=== PATIENT | female | born 1965 | race Caucasian/White ===

== ENCOUNTER 2017-01-09 21:18 | Emergency (ER) | payer BC ==
[2017-01-09 22:07] LABS: URINE BILIRUBIN NEGATIVE (NEGATIVE); URINE BLOOD LARGE (NEGATIVE); URINE COLOR YELLOW; URINE GLUCOSE (UA) NEGATIVE (NEGATIVE); URINE KETONE NEGATIVE (NEGATIVE); URINE LEUKOCYTE ESTERASE TRACE (NEGATIVE); URINE NITRITE NEGATIVE (NEGATIVE); URINE PROTEIN NEGATIVE (NEGATIVE); URINE UROBILINOGEN 0.2 E.U./dL (0.20 - 1.00)
[2017-01-09 22:09] LABS: URINE APPEARANCE SL CLOUDY
[2017-01-09 22:14] LABS: URINE BACTERIA NONE SEEN; URINE EPITHELIAL CELLS 0 - 2 (FEW); URINE WBC 0 - 2 (0-2/hpf)
[2017-01-09] MEDS ORDERED: 0.9 % SODIUM CHLORIDE 1,000 ML BAG IV ONE (22:15)
[2017-01-09] MEDS ORDERED: KETOROLAC 30 MG/ML VIAL IVP ONE (22:17)
[2017-01-09 22:25] LABS: BASO % 0.2 % (0-6); EOS % 4.9 % (0-6); GRAN % 55.6 % (47-80); HEMATOCRIT 43.6 % (35.0-47.0); HEMOGLOBIN 13.9 gm/dl (11.6-16.0); LYMPH % 30.4 % (16-45); MEAN CELL VOLUME 92.8 fl (81-97); MEAN CORPUSCULAR HEMOGLOBIN 29.6 pg (27-33); MEAN CORPUSCULAR HGB CONC 31.9 g/dl (32-36); MEAN PLATELET VOLUME 10.6 fl (7.4-10.4); MONO % 8.9 % (0-9); PLATELET COUNT 293 K/uL (130-400); RED CELL DISTRIBUTION WIDTH 13.2 % (11.5-14.5); WHITE BLOOD COUNT W/O DIFF 8.6 K/uL (4.2-12.2)
[2017-01-09 22:35] LABS: CREATININE 1.1 mg/dL (0.52-1.04)
--- NOTE | 2017-01-09 23:45 | Emergency Department Record ---
History of Present Illness - General Chief complaint: Flank Pain Stated complaint: FLANK PAIN Time Seen by Provider: 01/09/17 22:15 Source: Patient Mode of Arrival: Ambulatory Limitations: No limitations - History of Present Illness Initial comments: pt c/o r flank pain that feels like previous kidney stones. Onset/Timin -: Hour(s) Location: RLQ Radiation: R flank Severity scale (1-10): 8 Quality: Other Consistency: Constant Improves with: None Worsens with: None Patient : No Associated Symptoms: Denies other symptoms - Related Data Home Medications Medication Instructions Recorded Confirmed Last Taken Ascorbic Acid [Vitamin C] 500 mg PO DAILY 02/17/15 01/09/17 01/09/17 Calcium Carbonate/Vitamin D3 1 each PO DAILY 02/17/15 01/09/17 01/09/17 [Calcium 1,000 + D3 Caplet] Levothyroxine Sodium [Synthroid] 125 mcg PO QHS 02/17/15 01/09/17 01/09/17 Multivitamin [Multi-Vitamin Daily] 1 each PO DAILY 02/17/15 01/09/17 01/09/17 Bupropion HCl [Wellbutrin Xl] 300 mg PO DAILY 04/02/16 01/09/17 01/09/17 Magnesium [Magnesium] 250 mg PO DAILY 04/02/16 01/09/17 01/09/17 Omeprazole/Sodium Bicarbonate 1 each PO ASDIR 04/02/16 01/09/17 01/09/17 [Zegerid Otc 20-1,100 mg Cap] Previous Rx's Medication Instructions Recorded Hydrocodone/Acetaminophen [[place] 1 tab PO Q6H PRN #14 tab 01/09/17 5mg/325mg] Allergies Allergy/AdvReac Type Severity Reaction Status Date / Time sulfamethoxazole Allergy Mild HIVES Verified 02/17/15 10:07 [From Bactrim] trimethoprim [From Bactrim] Allergy Mild HIVES Verified 02/17/15 10:07 Travel Screening - Travel/Exposure Within Last 30 Days Have you traveled within the last 30 days?: No - Travel Symptoms Symptom Screening: None Review of Systems Reviewed: No additional complaints except as noted below Constitutional: Reports: As per HPI. Denies: Chills, Fever, Malaise, Night sweats, Weakness, Weight change Eyes: Reports: As per HPI. Denies: Eye discharge, Eye pain, Photophobia, Vision change ENT: Reports: As per HPI. Denies: Congestion, Dental pain, Ear pain, Epistaxis , Hearing loss, Throat pain Respiratory: Reports: As per HPI. Denies: Cough, Dyspnea, Hemoptysis, Stridor, Wheezes Cardiovascular: Reports: As per HPI. Denies: Arrhythmia, Chest pain, Dyspnea on exertion, Edema, Murmurs, Orthopnea, Palpitations, Paroxysmal nocturnal dyspnea, Rheumatic Fever, Syncope Endocrine: Reports: As per HPI. Denies: Fatigue, Heat or cold intolerance, Polydipsia, Polyuria Gastrointestinal: Reports: As per HPI. Denies: Abdominal pain, Constipation, Diarrhea, Hematemesis, Hematochezia, Melena, Nausea, Vomiting Genitourinary: Reports: As per HPI. Denies: Abnormal menses, Discharge, Dyspareunia, Dysuria, Frequency, Hematuria, Incontinence, Retention, Urgency Musculoskeletal: Reports: As per HPI. Denies: Arthralgia, Back pain, Gout, Joint swelling, Myalgia, Neck pain Skin: Reports: As per HPI. Denies: Bruising, Change in color, Change in hair/ nails, Lesions, Pruritus, Rash Neurological: Reports: As per HPI. Denies: Abnormal gait, Confusion, Headache, Numbness, Paresthesias, Seizure, Tingling, Tremors, Vertigo, Weakness Psychiatric: Reports: As per HPI. Denies: Anxiety, Auditory hallucinations, Depression, Homicidal thoughts, Suicidal thoughts, Visual hallucinations Hematological/Lymphatic: Reports: As per HPI. Denies: Anemia, Blood Clots, Easy bleeding, Easy bruising, Swollen glands Past Medical History - SOCIAL HISTORY Smoking Status: Former smoker - RESPIRATORY Hx Respiratory Disorders: Yes Hx Sleep Apnea: Yes Hx of CPAP: No - CARDIOVASCULAR Hx Cardio Disorders: No - NEURO Hx Neuro Disorders: No - GI Hx GI Disorders: Yes Hx Reflux: Yes - Hx Genitourinary Disorders: Yes Hx Kidney Stones: Yes (last >2year ago; Kidney stent in 06/2016) Comment:: medullary sponge kidney - ENDOCRINE Hx Endocrine Disorders: Yes Hx Thyroid Disease: Yes - MUSCULOSKELETAL Hx Musculoskeletal Disorders: Yes Hx Arthritis: Yes - PSYCH Hx Psych Problems: Yes Hx Anxiety: Yes Hx Depression: Yes - HEMATOLOGY/ONCOLOGY Hx Hematology/Oncology Disorders: Yes Hx Cancer: Yes Hx Chemotherapy: No Hx Radiation Therapy: No Family Medical History Any Significant Family History?: Yes Hx Cancer: Father, Mother *Cancer Comment: pancreatic, appendix, leukemia Hx Heart Disease: Grandparents *Heart Comment: CHF Physical Exam - General General Appearance: Alert, Oriented x3, Cooperative, Mild distress - Head Head exam: Normal inspection - Eye Eye exam: Normal appearance, PERRL, EOMI Pupils: Normal accommodation - ENT ENT exam: Normal exam, Mucous membranes moist, Normal external ear exam, Normal orophraynx Ear exam: Normal external inspection. negative: External canal tenderness Nasal Exam: Normal inspection. negative: Discharge, Sinus tenderness Mouth exam: Normal external inspection, Tongue normal Teeth exam: Normal inspection. negative: Dental caries Throat exam: Normal inspection. negative: Tonsillar erythema, Tonsillar exudate - Neck Neck exam: Normal inspection, Full ROM. negative: Tenderness - Respiratory Respiratory exam: Normal lung sounds bilaterally. negative: Respiratory distress - Cardiovascular Cardiovascular Exam: Regular rate, Normal rhythm, Normal heart sounds - GI/Abdominal GI/Abdominal exam: Soft, Normal bowel sounds, Tenderness - Rectal Rectal exam: Deferred - exam: Deferred - Extremities Extremities exam: Normal inspection, Full ROM, Normal capillary refill. negative: Tenderness - Back Back exam: Reports: Normal inspection, CVA tenderness (R), Full ROM. Denies: Muscle spasm, Rash noted, Tenderness - Neurological Neurological exam: Alert, CN II-XII intact, Normal gait, Oriented X3 - Psychiatric Psychiatric exam: Normal affect, Normal mood - Skin Skin exam: Dry, Intact, Normal color, Warm Course Vital Signs 01/09/17 21:59 Temperature 98 F Pulse Rate [ 101 H Pulse Ox Probe] Respiratory 20 Rate Blood Pressure 165/96 [Left Arm] Pulse Ox 99 - Reevaluation(s) Reevaluation #1: 01/09/17 23:42 pt feels much better. Medical Decision Making - Lab Data Result diagrams: 01/09/17 22:18 01/09/17 22:17 Lab Results 01/09/17 01/09/17 01/09/17 Range/Units 22:08 22:15 22:17 WBC (4.2-12.2) K/uL RBC (3.80-5.40) M/uL Hgb (11.6-16.0) gm/dl Hct (35.0-47.0) % MCV (81-97) fl MCH (27-33) pg MCHC (32-36) g/dl RDW (11.5-14.5) % Plt Count (130-400) K/uL MPV (7.4-10.4) fl Gran % (47-80) % Lymphocytes % (16-45) % Monocytes % (0-9) % Eosinophils % (0-6) % Basophils % (0-6) % Sodium 141 (136-145) mmol/L Potassium 3.7 (3.5-5.1) mmol/L Chloride 101 (98-107) mmol/L Carbon Dioxide 28.0 (22-30) mmol/L Anion Gap 12.0 (7-16) BUN 17 (7-17) mg/dL Creatinine 1.1 H (0.52-1.04) mg/dL Estimated GFR 55 ml/min Random Glucose 103 (70-110) mg/dL Calcium 9.5 (8.5-10.1) mg/dL Urine Color Yellow Cancelled Urine Appearance Sl cloudy Cancelled Urine pH 7.5 Cancelled (5.0-8.0) Ur Specific [place] 1.010 Cancelled (1.002-1.030) Urine Protein Negative Cancelled (NEGATIVE) Urine Glucose (UA) Negative Cancelled (NEGATIVE) Urine Clinitest Cancelled Urine Ketones Negative Cancelled (NEGATIVE) Urine Blood Large H Cancelled (NEGATIVE) Urine Nitrite Negative Cancelled (NEGATIVE) Urine Bilirubin Negative Cancelled (NEGATIVE) Urine Ictotest Cancelled Prot Sulfosalicylic Acd Cancelled Urine Urobilinogen 0.2 Cancelled (0.20 - 1.00) E.U./dL Ur Leukocyte Esterase Trace H Cancelled (NEGATIVE) Urine RBC 7 - 10 (NONE SEEN) Urine WBC 0 - 2 (0-2/hpf) Ur Epithelial Cells 0 - 2 (FEW) Urine Bacteria None seen 01/09/17 Range/Units 22:18 WBC 8.6 (4.2-12.2) K/uL RBC 4.70 (3.80-5.40) M/uL Hgb 13.9 (11.6-16.0) gm/dl Hct 43.6 (35.0-47.0) % MCV 92.8 (81-97) fl MCH 29.6 (27-33) pg MCHC 31.9 L (32-36) g/dl RDW 13.2 (11.5-14.5) % Plt Count 293 (130-400) K/uL MPV 10.6 H (7.4-10.4) fl Gran % 55.6 (47-80) % Lymphocytes % 30.4 (16-45) % Monocytes % 8.9 (0-9) % Eosinophils % 4.9 (0-6) % Basophils % 0.2 (0-6) % Sodium (136-145) mmol/L Potassium (3.5-5.1) mmol/L Chloride (98-107) mmol/L Carbon Dioxide (22-30) mmol/L Anion Gap (7-16) BUN (7-17) mg/dL Creatinine (0.52-1.04) mg/dL Estimated GFR ml/min Random Glucose (70-110) mg/dL Calcium (8.5-10.1) mg/dL Urine Color Urine Appearance Urine pH (5.0-8.0) Ur Specific [place] (1.002-1.030) Urine Protein (NEGATIVE) Urine Glucose (UA) (NEGATIVE) Urine Clinitest Urine Ketones (NEGATIVE) Urine Blood (NEGATIVE) Urine Nitrite (NEGATIVE) Urine Bilirubin (NEGATIVE) Urine Ictotest Prot Sulfosalicylic Acd Urine Urobilinogen (0.20 - 1.00) E.U./dL Ur Leukocyte Esterase (NEGATIVE) Urine RBC (NONE SEEN) Urine WBC (0-2/hpf) Ur Epithelial Cells (FEW) Urine Bacteria Disposition Disposition: Discharge Clinical Impression: Renal lithiasis Hydronephrosis Qualifiers: Hydronephrosis type: with ureteropelvic junction obstruction 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 return sooner if worse. push fluids. Prescriptions: Hydrocodone/Acetaminophen [Florala 5mg/325mg] 1 tab PO Q6H PRN #14 tab PRN Reason: Pain - General Forms: Patient Portal Access
[2017-01-09] MEDS ORDERED: HYDROCODONE/APAP 5/325MG TABLET PO ONE (23:49)
--- NOTE | 2017-01-10 10:46 | CT SCAN REPORT ---
EXAM: CT SCAN OF THE ABDOMEN AND PELVIS WITHOUT CONTRAST HISTORY: RIGHT SIDED FLANK PAIN AND ABDOMINAL PRESSURE. SYMPTOMS BEGAN AT 5: 30 P.M. TONIGHT. HISTORY OF MULTIPLE KIDNEY STONES IN THE PAST. TECHNIQUE: Standard CT imaging of the abdomen and pelvis was performed in the axial plane without contrast. Additional coronal and sagittal reformatted images were also performed. Comparison: 04/02/16. FINDINGS: There is mild atelectasis or scarring at both lung bases. The lung bases are otherwise clear. There are scattered tiny cysts within the liver which appears stable. Multiple calcified gallstones are are present. There is no gallbladder wall thickening or pericholecystic inflammation. There is no biliary ductal dilatation. The pancreas, spleen, and adrenal glands are normal. There are multiple nonobstructing stones within both kidneys. The largest within the right kidney measures 5 mm in maximal dimension. The largest within the left kidney measures 7 mm in maximal dimension. There is mild to moderate right hydronephrosis secondary to a 3 mm calculus within the right ureterovesical junction. There is no left hydronephrosis. The aorta is normal in caliber. There is no retroperitoneal lymphadenopathy. A tiny hiatal hernia is present. The stomach and epigastrium are otherwise normal. The large and small bowel loops appear within normal limits. There are focal inflammatory changes. There is no pneumoperitoneum or ascites. The uterus and adnexa appear normal. The urinary bladder is otherwise unremarkable. Degenerative changes are present within the spine. There are no acute osseous abnormalities. IMPRESSION: 1. MILD TO MODERATE RIGHT HYDRONEPHROSIS SECONDARY TO A 3 MM CALCULUS WITHIN THE RIGHT URETEROVESICAL JUNCTION. 2. MULTIPLE BILATERAL NONOBSTRUCTING INTRARENAL CALCULI. 3. CHOLELITHIASIS WITH NO EVIDENCE FOR ACUTE CHOLECYSTITIS. 4. STABLE HEPATIC CYSTS. 5. TINY HIATAL HERNIA. JOB [facility]BER: [id number] [facility]
== END 2017-01-10 00:09 | disposition home or self-care (01) ==
LOC: ER 21:18
DX: N13.2 Hydronephrosis with renal and ureteral calculous obstruction (principal); Z87.442 Personal history of urinary calculi; Q61.5 Medullary cystic kidney
CPT/HCPCS: 99284 ×2; 96374; 96361; 85025; 80048; 81001; 74176; J1885; J7030

== ENCOUNTER 2017-10-27 18:08 | Emergency (ER) | payer BC ==
[2017-10-27] MEDS ORDERED: ONDANSETRON HCL IV 4 MG/2 ML VIAL IV ONE (18:39)
[2017-10-27] MEDS ORDERED: HYDROMORPHONE HCL 1 MG/ML SYRINGE IVP ONE (18:39)
[2017-10-27] MEDS ORDERED: 0.9 % SODIUM CHLORIDE 1,000 ML BAG IV ONE (18:39)
--- NOTE | 2017-10-27 18:42 | Emergency Department Record ---
History of Present Illness - General Chief complaint: Flank Pain Stated complaint: FLANK PAIN LOWER L SIDE Time Seen by Provider: 10/27/17 18:31 Source: Patient Mode of Arrival: Ambulatory Limitations: No limitations - History of Present Illness Initial comments: The patient is here due to L lower Quad AP intermittently for a week. She denies any nausea, vomiting, diarrhea, fever or dysuria. The patient has a hx of many kidney stones and this feels like one of them. She has seen Dr. Savage in the past and has needed ureter stents in the past. MD Complaint: Other Onset/Timin -: Week(s) Location: LLQ Radiation: Non-radiating Severity: Moderate Severity scale (1-10): 6 Quality: Aching Consistency: Constant Improves with: None Worsens with: None Patient : No Associated Symptoms: Abdominal pain - Related Data Previous Rx's Medication Instructions Recorded Hydrocodone/Acetaminophen [Wall 1 - 2 each PO .EVERY 4-6 HRS PRN 10/27/17 5-325 Tablet] #20 tablet Allergies Allergy/AdvReac Type Severity Reaction Status Date / Time tamsulosin [From Flomax] Allergy Intermediate HIVES Verified 10/27/17 18:26 sulfamethoxazole Allergy Mild HIVES Verified 10/27/17 18:23 [From Bactrim] trimethoprim [From Bactrim] Allergy Mild HIVES Verified 10/27/17 18:23 Travel Screening - Travel/Exposure Within Last 30 Days Have you traveled within the last 30 days?: No Review of Systems Constitutional: Denies: Chills, Fever Eyes: Denies: Eye discharge ENT: Denies: Congestion Respiratory: Denies: Cough, Dyspnea Past Medical History - SOCIAL HISTORY Smoking Status: Former smoker Alcohol Use: Occasional Drug Use: None - RESPIRATORY Hx Respiratory Disorders: Yes Hx Sleep Apnea: Yes Hx of CPAP: No - CARDIOVASCULAR Hx Cardio Disorders: No - NEURO Hx Neuro Disorders: No - GI Hx GI Disorders: Yes Hx Reflux: Yes - Hx Genitourinary Disorders: Yes Hx Kidney Stones: Yes Comment:: medullary sponge kidney - ENDOCRINE Hx Endocrine Disorders: Yes Hx Thyroid Disease: Yes - MUSCULOSKELETAL Hx Musculoskeletal Disorders: Yes Hx Arthritis: Yes - PSYCH Hx Psych Problems: Yes Hx Anxiety: Yes Hx Depression: Yes - HEMATOLOGY/ONCOLOGY Hx Hematology/Oncology Disorders: Yes Hx Cancer: Yes Hx Chemotherapy: No Hx Radiation Therapy: No Family Medical History Any Significant Family History?: Yes Hx Cancer: Father, Mother *Cancer Comment: pancreatic, appendix, leukemia Hx Heart Disease: Grandparents *Heart Comment: CHF Physical Exam - General General Appearance: Alert, Oriented x3, Cooperative, No acute distress - Head Head exam: Atraumatic, Normocephalic, Normal inspection - Eye Eye exam: Normal appearance, PERRL - Neck Neck exam: Normal inspection, Full ROM. negative: Tenderness - Respiratory Respiratory exam: Normal lung sounds bilaterally. negative: Respiratory distress - Cardiovascular Cardiovascular Exam: Regular rate, Normal rhythm, Normal heart sounds - GI/Abdominal GI/Abdominal exam: Soft, Normal bowel sounds, Tenderness (There is mild LLQ tenderness.). negative: Guarding, Pulsatile mass, Rebound, Rigid - Extremities Extremities exam: Normal inspection, Full ROM, Normal capillary refill. negative: Tenderness - Neurological Neurological exam: Alert. negative: Motor sensory deficit Course Vital Signs 10/27/17 18:20 Temperature 97.8 F Pulse Rate 89 Respiratory 20 Rate Blood Pressure 118/94 Pulse Ox 98 - Reevaluation(s) Reevaluation #1: The patient is doing very well at this time. Her pain is controlled and she does feel comfortable going home. I did explain the CT results to her and the need for F/U. She understands the need to return for any worsening symptoms, fever, or vomiting. 10/27/17 19:57 Medical Decision Making - Data Complexity MDM Data: Labs Ordered and/or Reviewed, X-Ray Ordered and/or Reviewed - Lab Data Result diagrams: 10/27/17 18:45 10/27/17 19:04 - Radiology Data Radiology results: Report reviewed (CT: 5.5 mm stone L UPJ partially obstructing.) Disposition Disposition: Discharge Clinical Impression: Renal lithiasis Disposition: Home, Self-Care Condition: (2) Stable Instructions: Renal Colic (ED) Additional Instructions: Please drink plenty of fluids and take Advil or Wall for pain. Please call Dr. Savage Monday for an appointment. Return to the ER for any increased pain, fever , or vomiting. Prescriptions: Hydrocodone/Acetaminophen [Wall 5-325 Tablet] 1 - 2 each PO .EVERY 4-6 HRS PRN #20 tablet PRN Reason: Pain Forms: Patient Portal Access Time of Disposition: 19:55 Quality - Quality Measures Quality Measures: N/A - Blood Pressure Screening View Details: Yes Does Patient Have Any of the Following: No Blood Pressure Classification: Hypertensive Reading Systolic Measurement: 118 Diastolic Measurement: 94 Screening for High Blood Pressure: < Pre-Hypertensive BP, F/U Documented > [ [id number]] Pre-Hypertensive Follow-up Interventions: Referral to alternative/primary care provider.
[2017-10-27 19:16] LABS: BASO % 0.1 % (0-6); GRAN % 57.4 % (47-80); HEMATOCRIT 42.9 % (35.0-47.0); HEMOGLOBIN 14.2 gm/dl (11.6-16.0); LYMPH % 30.6 % (16-45); MEAN CELL VOLUME 93.5 fl (81-97); MEAN CORPUSCULAR HEMOGLOBIN 30.9 pg (27-33); MEAN CORPUSCULAR HGB CONC 33.1 g/dl (32-36); MEAN PLATELET VOLUME 10.4 fl (7.4-10.4); MONO % 7.9 % (0-9); PLATELET COUNT 278 K/uL (130-400); RED BLOOD COUNT 4.59 M/uL (3.80-5.40); RED CELL DISTRIBUTION WIDTH 12.9 % (11.5-14.5); WHITE BLOOD COUNT W/O DIFF 7.2 K/uL (4.2-12.2)
[2017-10-27 19:17] LABS: URINE APPEARANCE SL CLOUDY; URINE BILIRUBIN NEGATIVE (NEGATIVE); URINE BLOOD TRACE-I (NEGATIVE); URINE COLOR YELLOW; URINE GLUCOSE (UA) NEGATIVE (NEGATIVE); URINE KETONE NEGATIVE (NEGATIVE); URINE LEUKOCYTE ESTERASE TRACE (NEGATIVE); URINE NITRITE NEGATIVE (NEGATIVE); URINE PROTEIN NEGATIVE (NEGATIVE); URINE UROBILINOGEN 0.2 E.U./dL (0.20 - 1.00)
[2017-10-27 19:25] LABS: BLOOD UREA NITROGEN 23 mg/dL (6-20); CREATININE 0.9 mg/dL (0.5-0.9); EST GLOMERULAR FILTRATION RATE > 60 mL/min
[2017-10-27 19:28] LABS: GLUCOSE,RANDOM 100 mg/dL (74-109)
[2017-10-27 19:29] LABS: URINE CALCIUM OXALATE CRYSTALS FEW /hpf; URINE RBC 0 - 2 (NONE SEEN); URINE WBC 0 - 2 (0-2/hpf)
--- NOTE | 2017-10-28 10:45 | CT SCAN REPORT ---
DATE: 10/27/2017. EXAM: CT SCAN OF THE ABDOMEN AND PELVIS. HISTORY: The patient has left lower quadrant pain. TECHNIQUE: Serial axial CT scan of the abdomen and pelvis was performed at 3.75 mm intervals from the dome of the diaphragm down to the pubic symphysis without the use of intravenous or oral contrast. COMPARISON: CT scan of the abdomen and pelvis dated 11/23/2007 is provided. FINDINGS: The lung windows of the lung bases demonstrate linear scarring of the bilateral lung bases which appear similar to the prior CT scan. The visualized heart size and contour is within normal limits. A small hiatal hernia is noted. The bilateral hepatic lobe cysts appear similar to the prior CT scan. Some of the cysts that can be identified on the previous CT scan have increased in size with respect to the prior examination. The size and contour of the liver is within normal limits. The spleen and pancreas are unremarkable. The left adrenal gland is unchanged. Within the lateral limb of the right adrenal gland, there is a 1.6 cm nodule which has increased in size with respect to the prior examination. This finding likely represents an adrenal adenoma. If there is further clinical concern then an MRI of the adrenal glands can be obtained for further evaluation. Multiple gallstones are identified within the gallbladder without CT evidence of cholecystitis. These gallstones have increased in size with respect to the prior examination. Multiple bilateral renal calculi are identified. Within the left ureteropelvic junction there is a partially obstructing 5.5 mm calculus. Subtle periureteral fat stranding is identified at this level. There are findings suggestive of mild left-sided hydronephrosis. Multiple nonobstructive renal calculi are noted bilaterally as well. The largest nonobstructing renal calculus within the right kidney is at the superior pole and measures approximately 6.0 mm. The largest nonobstructing calculus within the left kidney is at its inferior pole and measures approximately 6.0 mm. The contour and caliber of the abdominal aorta is within normal limits. There is no CT evidence of intraperitoneal, pelvic, or inguinal lymphadenopathy. The bowel gas pattern is nonspecific and nonobstructive. There is no CT evidence of free intraperitoneal fluid or free intraperitoneal air. The urinary bladder is unremarkable. The uterus is unremarkable. IMPRESSION: 1. A PARTIALLY OBSTRUCTING 5.5 MM CALCULUS IS NOTED WITHIN THE LEFT URETEROPELVIC JUNCTION DISCUSSED ABOVE. 2. MULTIPLE NONOBSTRUCTIVE BILATERAL RENAL CALCULI. 3. MULTIPLE SMALL HEPATIC CYSTS, SOME OF WHICH HAVE INCREASED SLIGHTLY IN SIZE WITH RESPECT TO THE PRIOR EXAMINATION. 4. MULTIPLE GALLSTONES ARE IDENTIFIED WITHOUT CT EVIDENCE OF CHOLECYSTITIS. JOB NUMBER: [id number] [facility]
== END 2017-10-27 20:11 | disposition home or self-care (01) ==
LOC: ER 18:08
DX: N20.2 Calculus of kidney with calculus of ureter (principal); M54.5 Low back pain; Z87.442 Personal history of urinary calculi
CPT/HCPCS: 99284 ×2; 96374; 96375; 96361; 85025; 80048; 81001; 74018; 74176; J2405; J1170; J7030

== ENCOUNTER 2019-03-16 16:19 | Emergency (ER) | payer BC ==
[2019-03-16] MEDS ORDERED: ONDANSETRON HCL IV 4 MG/2 ML VIAL IV ONE (16:41)
[2019-03-16] MEDS ORDERED: KETOROLAC 30 MG/ML VIAL IVP ONE (16:41)
[2019-03-16] MEDS ORDERED: 0.9 % SODIUM CHLORIDE 1,000 ML BAG IV ONE (16:41)
[2019-03-16 16:57] LABS: URINE APPEARANCE CLEAR; URINE BILIRUBIN NEGATIVE (NEGATIVE); URINE BLOOD NEGATIVE (NEGATIVE); URINE COLOR YELLOW; URINE GLUCOSE (UA) NEGATIVE (NEGATIVE); URINE KETONE NEGATIVE (NEGATIVE); URINE NITRITE NEGATIVE (NEGATIVE); URINE PROTEIN NEGATIVE (NEGATIVE); URINE UROBILINOGEN 0.2 E.U./dL (0.20 - 1.00)
[2019-03-16 16:58] LABS: ABSOLUTE NEUTROPHIL COUNT 4.86; BASO % 0.2 % (0-6); EOS % 3.8 % (0-6); GRAN % 57.9 % (47-80); HEMATOCRIT 47.8 % (35.0-47.0); HEMOGLOBIN 15.5 gm/dl (11.6-16.0); LYMPH % 29.1 % (16-45); MEAN CELL VOLUME 93.9 fl (81-97); MEAN CORPUSCULAR HEMOGLOBIN 30.5 pg (27-33); MEAN CORPUSCULAR HGB CONC 32.4 g/dl (32-36); MEAN PLATELET VOLUME 10.8 fl (7.4-10.4); PLATELET COUNT 335 K/uL (130-400); RED BLOOD COUNT 5.09 M/uL (3.80-5.40); RED CELL DISTRIBUTION WIDTH 13.1 % (11.5-14.5); WHITE BLOOD COUNT W/O DIFF 8.4 K/uL (4.2-12.2)
[2019-03-16] MEDS ORDERED: HYDROMORPHONE HCL 2 MG/ML VIAL IVP ONE (17:00)
[2019-03-16 17:07] LABS: URINE EPITHELIAL CELLS 0 - 2 (FEW); URINE LEUKOCYTE ESTERASE TRACE (NEGATIVE); URINE RBC 0 - 2 (NONE SEEN); URINE WBC 0 - 2 (0-2/hpf)
[2019-03-16 17:12] LABS: BLOOD UREA NITROGEN 14 mg/dL (6-20); EST GLOMERULAR FILTRATION RATE > 60 mL/min
[2019-03-16 17:15] LABS: GLUCOSE,RANDOM 114 mg/dL (74-109)
--- NOTE | 2019-03-16 17:15 | Emergency Department Record ---
History of Present Illness - General Chief complaint: Flank Pain Stated complaint: R FLANK PAIN Time Seen by Provider: 03/16/19 16:34 Source: Patient Mode of Arrival: Ambulatory Limitations: No limitations - History of Present Illness Initial comments: pt came in c/o r flank pain that feels like her previous kidney stones. she has had many and has had lithotripsy before Onset/Timin -: Hour(s) Radiation: R flank Severity scale (1-10): 8 Quality: Aching, Sharp Consistency: Constant Improves with: None Worsens with: None Patient : No Associated Symptoms: Denies other symptoms - Related Data Sexually active: No Allergies Allergy/AdvReac Type Severity Reaction Status Date / Time tamsulosin [From Flomax] Allergy Intermediate HIVES Unverified 08/17/18 14:21 sulfamethoxazole Allergy Mild HIVES Verified 10/27/17 18:23 [From Bactrim] trimethoprim [From Bactrim] Allergy Mild HIVES Verified 10/27/17 18:23 Travel Screening - Travel/Exposure Within Last 30 Days Have you traveled within the last 30 days?: No Review of Systems Reviewed: No additional complaints except as noted below Constitutional: Reports: As per HPI. Denies: Chills, Fever, Malaise, Night sweats, Weakness, Weight change Eyes: Reports: As per HPI. Denies: Eye discharge, Eye pain, Photophobia, Vision change ENT: Reports: As per HPI. Denies: Congestion, Dental pain, Ear pain, Epistaxis, Hearing loss, Throat pain Respiratory: Reports: As per HPI. Denies: Cough, Dyspnea, Hemoptysis, Stridor, Wheezes Cardiovascular: Reports: As per HPI. Denies: Arrhythmia, Chest pain, Dyspnea on exertion, Edema, Murmurs, Orthopnea, Palpitations, Paroxysmal nocturnal dyspnea, Rheumatic Fever, Syncope Endocrine: Reports: As per HPI. Denies: Fatigue, Heat or cold intolerance, Polydipsia, Polyuria Gastrointestinal: Reports: As per HPI. Denies: Abdominal pain, Constipation, Diarrhea, Hematemesis, Hematochezia, Melena, Nausea, Vomiting Genitourinary: Reports: As per HPI. Denies: Abnormal menses, Discharge, Dyspareunia, Dysuria, Frequency, Hematuria, Incontinence, Retention, Urgency Musculoskeletal: Reports: As per HPI. Denies: Arthralgia, Back pain, Gout, Joint swelling, Myalgia, Neck pain Skin: Reports: As per HPI. Denies: Bruising, Change in color, Change in hair/nails, Lesions, Pruritus, Rash Neurological: Reports: As per HPI. Denies: Abnormal gait, Confusion, Headache, Numbness, Paresthesias, Seizure, Tingling, Tremors, Vertigo, Weakness Psychiatric: Reports: As per HPI. Denies: Anxiety, Auditory hallucinations, Depression, Homicidal thoughts, Suicidal thoughts, Visual hallucinations Hematological/Lymphatic: Reports: As per HPI. Denies: Anemia, Blood Clots, Easy bleeding, Easy bruising, Swollen glands Past Medical History - SOCIAL HISTORY Smoking Status: Former smoker - RESPIRATORY Hx Respiratory Disorders: Yes Hx Sleep Apnea: Yes Hx of CPAP: No - CARDIOVASCULAR Hx Cardio Disorders: No - NEURO Hx Neuro Disorders: No - GI Hx GI Disorders: Yes Hx Reflux: Yes - Hx Genitourinary Disorders: Yes Hx Kidney Stones: Yes Comment:: medullary sponge kidney - ENDOCRINE Hx Endocrine Disorders: Yes Hx Thyroid Disease: Yes - MUSCULOSKELETAL Hx Musculoskeletal Disorders: Yes Hx Arthritis: Yes - PSYCH Hx Psych Problems: Yes Hx Anxiety: Yes Hx Depression: Yes - HEMATOLOGY/ONCOLOGY Hx Hematology/Oncology Disorders: Yes Hx Cancer: Yes Hx Chemotherapy: No Hx Radiation Therapy: No Family Medical History Any Significant Family History?: Yes Hx Cancer: Father, Mother *Cancer Comment: pancreatic, appendix, leukemia Hx Heart Disease: Grandparents *Heart Comment: CHF Physical Exam - General General Appearance: Alert, Oriented x3, Cooperative, Mild distress - Head Head exam: Normal inspection - Eye Eye exam: Normal appearance, PERRL, EOMI Pupils: Normal accommodation - ENT ENT exam: Normal exam, Mucous membranes moist, Normal external ear exam, Normal orophraynx Ear exam: Normal external inspection. negative: External canal tenderness Nasal Exam: Normal inspection. negative: Discharge, Sinus tenderness Mouth exam: Normal external inspection, Tongue normal Teeth exam: Normal inspection. negative: Dental caries Throat exam: Normal inspection. negative: Tonsillar erythema, Tonsillar exudate - Neck Neck exam: Normal inspection, Full ROM. negative: Tenderness - Respiratory Respiratory exam: Normal lung sounds bilaterally. negative: Respiratory distress - Cardiovascular Cardiovascular Exam: Regular rate, Normal rhythm, Normal heart sounds - GI/Abdominal GI/Abdominal exam: Soft, Normal bowel sounds. negative: Tenderness - Rectal Rectal exam: Deferred - exam: Deferred - Extremities Extremities exam: Normal inspection, Full ROM, Normal capillary refill. negative: Tenderness - Back Back exam: Reports: Normal inspection, Full ROM. Denies: Muscle spasm, Rash noted, Tenderness - Neurological Neurological exam: Alert, CN II-XII intact, Normal gait, Oriented X3 - Psychiatric Psychiatric exam: Normal affect, Normal mood - Skin Skin exam: Dry, Intact, Normal color, Warm Course Vital Signs 03/16/19 16:24 Temperature 98.2 F Pulse Rate 94 H Respiratory 20 Rate Blood Pressure 166/102 Pulse Ox 97 - Reevaluation(s) Reevaluation #1: 03/16/19 18:26 d/w dr keyes Medical Decision Making - Lab Data Result diagrams: 03/16/19 16:30 03/16/19 16:30 Lab Results 03/16/19 03/16/19 03/16/19 Range/Units 16:30 16:30 16:30 WBC 8.4 (4.2-12.2) K/uL RBC 5.09 (3.80-5.40) M/uL Hgb 15.5 (11.6-16.0) gm/dl Hct 47.8 H (35.0-47.0) % MCV 93.9 (81-97) fl MCH 30.5 (27-33) pg MCHC 32.4 (32-36) g/dl RDW 13.1 (11.5-14.5) % Plt Count 335 (130-400) K/uL MPV 10.8 H (7.4-10.4) fl Gran % 57.9 (47-80) % Lymphocytes % 29.1 (16-45) % Monocytes % 9.0 (0-9) % Eosinophils % 3.8 (0-6) % Basophils % 0.2 (0-6) % Absolute Neutrophils 4.86 Sodium 143 (136-145) mmol/L Potassium 3.5 (3.4-4.5) mmol/L Chloride 99 (98-107) mmol/L Carbon Dioxide 28.0 (22-29) mmol/L Anion Gap 16.0 (7-16) BUN 14 (6-20) mg/dL Creatinine 1.0 H (0.5-0.9) mg/dL Estimated GFR > 60 mL/min Calcium 10.2 H (8.6-10.0) mg/dL Urine Color Yellow Urine Appearance Clear Urine pH 7.5 (5.0-8.0) Ur Specific [place] 1.010 (1.002-1.030) Urine Protein Negative (NEGATIVE) Urine Glucose (UA) Negative (NEGATIVE) Urine Ketones Negative (NEGATIVE) Urine Blood Negative (NEGATIVE) Urine Nitrite Negative (NEGATIVE) Urine Bilirubin Negative (NEGATIVE) Urine Urobilinogen 0.2 (0.20 - 1.00) E.U./dL Ur Leukocyte Esterase Trace H (NEGATIVE) Urine RBC 0 - 2 (NONE SEEN) Urine WBC 0 - 2 (0-2/hpf) Ur Epithelial Cells 0 - 2 (FEW) Disposition Disposition: Discharge Clinical Impression: Cholecystitis with cholelithiasis Qualifiers: Cholelithiasis location: gallbladder Cholecystitis acuity: acute Biliary obstruction: without biliary obstruction Qualified Code(s): K80.00 - Calculus of gallbladder with acute cholecystitis without obstruction Disposition: Home, Self-Care Condition: (1) Good Instructions: Cholecystitis (ED) Additional Instructions: return monday at 7am for surgery. no food or drink after midnight Monday. return sooner if worse Forms: Patient Portal Access Quality - Quality Measures Quality Measures: N/A - Blood Pressure Screening Does Patient Have Any of the Following: No Blood Pressure Classification: Hypertensive Reading Systolic Measurement: 166 Diastolic Measurement: 102 Screening for High Blood Pressure: < First Hypertensive BP, F/U Documented > [G8950] First Hypertensive Follow-up Interventions: Follow-up with rescreen GT 1 day and LT 4 weeks.
[2019-03-16 17:40] LABS: LIPASE 72 U/L (13-60); TOTAL PROTEIN 7.9 g/dL (6.6-8.7)
[2019-03-16 17:44] LABS: ALT/SGPT 19 U/L (<33); AST/SGOT 21 U/L (10.0-35.0)
[2019-03-16 17:45] LABS: ALBUMIN 5.1 g/dL (4.0-5.0); ALKALINE PHOSPHATASE 108 U/L (35-104); BILIRUBIN,DIRECT < 0.2 mg/dL (0-0.3)
[2019-03-16] MEDS ORDERED: AMOXICILLIN/POTASSIUM CLAV 875MG/125MG TABLET PO ONE ×2 (18:28→18:35)
--- NOTE | 2019-03-16 18:41 | Emergency Department Record ---
History of Present Illness - General Chief complaint: Flank Pain Stated complaint: R FLANK PAIN Time Seen by Provider: 03/16/19 16:34 Source: Patient Mode of Arrival: Ambulatory Limitations: No limitations - History of Present Illness Onset/Timin -: Hour(s) Radiation: R flank Severity scale (1-10): 8 Quality: Aching, Sharp Consistency: Constant Improves with: None Worsens with: None Patient : No Associated Symptoms: Denies other symptoms - Related Data Sexually active: No Previous Rx's Medication Instructions Recorded Amoxicillin/Potassium Clav 1 each PO BID #14 tablet 03/16/19 [Augmentin 875Mg/125Mg] Allergies Allergy/AdvReac Type Severity Reaction Status Date / Time tamsulosin [From Flomax] Allergy Intermediate HIVES Unverified 08/17/18 14:21 sulfamethoxazole Allergy Mild HIVES Verified 10/27/17 18:23 [From Bactrim] trimethoprim [From Bactrim] Allergy Mild HIVES Verified 10/27/17 18:23 Travel Screening - Travel/Exposure Within Last 30 Days Have you traveled within the last 30 days?: No Review of Systems Constitutional: Reports: As per HPI. Denies: Chills, Fever, Malaise, Night sweats, Weakness, Weight change Eyes: Reports: As per HPI. Denies: Eye discharge, Eye pain, Photophobia, Vision change ENT: Reports: As per HPI. Denies: Congestion, Dental pain, Ear pain, Epistaxis, Hearing loss, Throat pain Respiratory: Reports: As per HPI. Denies: Cough, Dyspnea, Hemoptysis, Stridor, Wheezes Cardiovascular: Reports: As per HPI. Denies: Arrhythmia, Chest pain, Dyspnea on exertion, Edema, Murmurs, Orthopnea, Palpitations, Paroxysmal nocturnal dyspnea, Rheumatic Fever, Syncope Endocrine: Reports: As per HPI. Denies: Fatigue, Heat or cold intolerance, Polydipsia, Polyuria Gastrointestinal: Reports: As per HPI. Denies: Abdominal pain, Constipation, Diarrhea, Hematemesis, Hematochezia, Melena, Nausea, Vomiting Genitourinary: Reports: As per HPI. Denies: Abnormal menses, Discharge, Dyspare unia, Dysuria, Frequency, Hematuria, Incontinence, Retention, Urgency Musculoskeletal: Reports: As per HPI. Denies: Arthralgia, Back pain, Gout, Joint swelling, Myalgia, Neck pain Skin: Reports: As per HPI. Denies: Bruising, Change in color, Change in hair/nails, Lesions, Pruritus, Rash Neurological: Reports: As per HPI. Denies: Abnormal gait, Confusion, Headache, Numbness, Paresthesias, Seizure, Tingling, Tremors, Vertigo, Weakness Psychiatric: Reports: As per HPI. Denies: Anxiety, Auditory hallucinations, Depression, Homicidal thoughts, Suicidal thoughts, Visual hallucinations Hematological/Lymphatic: Reports: As per HPI. Denies: Anemia, Blood Clots, Easy bleeding, Easy bruising, Swollen glands Past Medical History - SOCIAL HISTORY Smoking Status: Former smoker - RESPIRATORY Hx Respiratory Disorders: Yes Hx Sleep Apnea: Yes Hx of CPAP: No - CARDIOVASCULAR Hx Cardio Disorders: No - NEURO Hx Neuro Disorders: No - GI Hx GI Disorders: Yes Hx Reflux: Yes - Hx Genitourinary Disorders: Yes Hx Kidney Stones: Yes Comment:: medullary sponge kidney - ENDOCRINE Hx Endocrine Disorders: Yes Hx Thyroid Disease: Yes - MUSCULOSKELETAL Hx Musculoskeletal Disorders: Yes Hx Arthritis: Yes - PSYCH Hx Psych Problems: Yes Hx Anxiety: Yes Hx Depression: Yes - HEMATOLOGY/ONCOLOGY Hx Hematology/Oncology Disorders: Yes Hx Cancer: Yes Hx Chemotherapy: No Hx Radiation Therapy: No Family Medical History Any Significant Family History?: Yes Hx Cancer: Father, Mother *Cancer Comment: pancreatic, appendix, leukemia Hx Heart Disease: Grandparents *Heart Comment: CHF Physical Exam - General Limitations: No limitations Course Vital Signs 03/16/19 03/16/19 16:24 18:00 Temperature 98.2 F Pulse Rate 94 H Pulse Rate [ 102 H Pulse Ox Probe] Respiratory 20 20 Rate Blood Pressure 166/102 Blood Pressure 160/97 [Left Arm] Pulse Ox 97 100 Medical Decision Making - Lab Data Result diagrams: 03/16/19 16:30 03/16/19 16:30 Lab Results 03/16/19 03/16/19 03/16/19 Range/Units 16:30 16:30 16:30 WBC 8.4 (4.2-12.2) K/uL RBC 5.09 (3.80-5.40) M/uL Hgb 15.5 (11.6-16.0) gm/dl Hct 47.8 H (35.0-47.0) % MCV 93.9 (81-97) fl MCH 30.5 (27-33) pg MCHC 32.4 (32-36) g/dl RDW 13.1 (11.5-14.5) % Plt Count 335 (130-400) K/uL MPV 10.8 H (7.4-10.4) fl Gran % 57.9 (47-80) % Lymphocytes % 29.1 (16-45) % Monocytes % 9.0 (0-9) % Eosinophils % 3.8 (0-6) % Basophils % 0.2 (0-6) % Absolute Neutrophils 4.86 Sodium 143 (136-145) mmol/L Potassium 3.5 (3.4-4.5) mmol/L Chloride 99 (98-107) mmol/L Carbon Dioxide 28.0 (22-29) mmol/L Anion Gap 16.0 (7-16) BUN 14 (6-20) mg/dL Creatinine 1.0 H (0.5-0.9) mg/dL Estimated GFR > 60 mL/min Random Glucose 114 H (74-109) mg/dL Calcium 10.2 H (8.6-10.0) mg/dL Total Bilirubin (0.2-1.0) mg/dL Direct Bilirubin (0-0.3) mg/dL AST (10.0-35.0) U/L ALT (<33) U/L Alkaline Phosphatase (35-104) U/L Total Protein (6.6-8.7) g/dL Albumin (4.0-5.0) g/dL Lipase (13-60) U/L Urine Color Yellow Urine Appearance Clear Urine pH 7.5 (5.0-8.0) Ur Specific [place] 1.010 (1.002-1.030) Urine Protein Negative (NEGATIVE) Urine Glucose (UA) Negative (NEGATIVE) Urine Ketones Negative (NEGATIVE) Urine Blood Negative (NEGATIVE) Urine Nitrite Negative (NEGATIVE) Urine Bilirubin Negative (NEGATIVE) Urine Urobilinogen 0.2 (0.20 - 1.00) E.U./dL Ur Leukocyte Esterase Trace H (NEGATIVE) Urine RBC 0 - 2 (NONE SEEN) Urine WBC 0 - 2 (0-2/hpf) Ur Epithelial Cells 0 - 2 (FEW) 03/16/19 Range/Units 16:30 WBC (4.2-12.2) K/uL RBC (3.80-5.40) M/uL Hgb (11.6-16.0) gm/dl Hct (35.0-47.0) % MCV (81-97) fl MCH (27-33) pg MCHC (32-36) g/dl RDW (11.5-14.5) % Plt Count (130-400) K/uL MPV (7.4-10.4) fl Gran % (47-80) % Lymphocytes % (16-45) % Monocytes % (0-9) % Eosinophils % (0-6) % Basophils % (0-6) % Absolute Neutrophils Sodium (136-145) mmol/L Potassium (3.4-4.5) mmol/L Chloride (98-107) mmol/L Carbon Dioxide (22-29) mmol/L Anion Gap (7-16) BUN (6-20) mg/dL Creatinine (0.5-0.9) mg/dL Estimated GFR mL/min Random Glucose (74-109) mg/dL Calcium (8.6-10.0) mg/dL Total Bilirubin 0.40 (0.2-1.0) mg/dL Direct Bilirubin < 0.2 (0-0.3) mg/dL AST 21 (10.0-35.0) U/L ALT 19 (<33) U/L Alkaline Phosphatase 108 H (35-104) U/L Total Protein 7.9 (6.6-8.7) g/dL Albumin 5.1 H (4.0-5.0) g/dL Lipase 72 H (13-60) U/L Urine Color Urine Appearance Urine pH (5.0-8.0) Ur Specific [place] (1.002-1.030) Urine Protein (NEGATIVE) Urine Glucose (UA) (NEGATIVE) Urine Ketones (NEGATIVE) Urine Blood (NEGATIVE) Urine Nitrite (NEGATIVE) Urine Bilirubin (NEGATIVE) Urine Urobilinogen (0.20 - 1.00) E.U./dL Ur Leukocyte Esterase (NEGATIVE) Urine RBC (NONE SEEN) Urine WBC (0-2/hpf) Ur Epithelial Cells (FEW) Disposition Disposition: Discharge Clinical Impression: Cholecystitis with cholelithiasis Qualifiers: Cholelithiasis location: gallbladder Cholecystitis acuity: acute Biliary obstruction: without biliary obstruction Qualified Code(s): K80.00 - Calculus of gallbladder with acute cholecystitis without obstruction Disposition: Home, Self-Care Condition: (1) Good Instructions: Cholecystitis (ED) Additional Instructions: return monday at 7am for surgery. no food or drink after midnight Monday. re turn sooner if worse Prescriptions: Amoxicillin/Potassium Clav [Augmentin 875Mg/125Mg] 1 each PO BID #14 tablet Forms: Patient Portal Access Quality - Quality Measures Quality Measures: N/A - Blood Pressure Screening Does Patient Have Any of the Following: No Blood Pressure Classification: Hypertensive Reading Systolic Measurement: 166 Diastolic Measurement: 102 Screening for High Blood Pressure: < First Hypertensive BP, F/U Documented > [ G8950] First Hypertensive Follow-up Interventions: Follow-up with rescreen GT 1 day and LT 4 weeks.
--- NOTE | 2019-03-18 21:00 | CT SCAN REPORT ---
EXAM: CT SCAN ABDOMEN/PELVIS WO CONTRAST HISTORY: RIGHT FLANK PAIN. TECHNIQUE: Noncontrast images are obtained from the dome of the diaphragm to the symphysis pubis. COMPARISON: 01/18/18. FINDINGS: The lung bases and pleural spaces are clear. There are several low- density lesions in the hepatic parenchyma, which are unchanged and likely represent cysts. As on the prior examination, several faceted gallstones are present in the gallbladder lumen. However, on today's examination, the gallbladder is mildly distended and demonstrates gallbladder wall thickening. Additionally, there is mild inflammation at the darshana hepatis, previously absent. The pancreas and spleen are normal. The adrenal glands are normal. Multiple nonobstructing bilateral small renal calculi are present. The largest in the lower pole of the right kidney and measures 7 mm. However, there is no hydronephrosis and both ureters are unremarkable to the level of the bladder. There is no mesenteric mass, bowel dilatation, free air or intraperitoneal free fluid. The bones are unremarkable. IMPRESSION: 1. MULTIPLE BILATERAL RENAL CALCULI WITHOUT EVIDENCE OF HYDRONEPHROSIS OR OTHER OBSTRUCTING PROCESS. 2. THE GALLBLADDER IS ABNORMAL WITH GALLSTONES, GALLBLADDER WALL THICKENING, GALLBLADDER DISTENTION, AND MILD INFLAMMATION AT THE DARSHANA HEPATIS. CORRELATE CLINICALLY FOR ACUTE CHOLECYSTITIS. JOB NUMBER: [id number] [facility]
== END 2019-03-16 19:01 | disposition home or self-care (01) ==
LOC: ER 16:19
DX: K80.00 Calculus of gallbladder with acute cholecystitis without obstruction (principal); F17.210 Nicotine dependence, cigarettes, uncomplicated; Z87.442 Personal history of urinary calculi
CPT/HCPCS: 74176; 80048; 80076; 81001; 83690; 85025; 96374; 96375; 99284; J1885; J2405; J7030

== ENCOUNTER 2019-03-18 07:07 | Day surgery (SDC) | payer BC ==
[~2019-03-18 07:07] MED LIST: ACETAMINOPHEN 1,000 MG/100 ML BTL IVPB ONE; FAMOTIDINE 20MG TABLET PO ONE; MECLIZINE 25 MG TABLET PO ONE; METOCLOPRAMIDE 10 MG TABLET PO ONE
[2019-03-18] MEDS ORDERED: MIDAZOLAM HCL 2MG/2ML VIAL IV ONE ×2 (07:08→13:02)
[2019-03-18] MEDS ORDERED: ESMOLOL HCL 100 MG/10 ML ML IVP ONE (07:08)
[2019-03-18] MEDS ORDERED: FENTANYL PF 100MCG/2ML VIAL IV ONE (07:08)
[2019-03-18] MEDS ORDERED: LIDOCAINE 2% MDV (20MG/ML) 20ML VIAL IV ONE (07:08)
[2019-03-18] MEDS ORDERED: PROPOFOL 10 MG/ML VIAL IV ONE (07:08)
[2019-03-18] MEDS ORDERED: GLYCOPYRROLATE 0.2 MG/ML ML IV ONE (07:08)
[2019-03-18] MEDS ORDERED: ONDANSETRON HCL IV 4 MG/2 ML VIAL IVP ONE (07:08)
[2019-03-18] MEDS ORDERED: SEVOFLURANE 250 ML INH ONE (07:08)
[2019-03-18] MEDS ORDERED: DEXAMETHASONE 4 MG/ML 1ML VIAL IVP ONE (07:08)
[2019-03-18] MEDS ORDERED: SUGAMMADEX SODIUM 200 MG/2 ML VIAL IV ONE (07:08)
[2019-03-18] MEDS ORDERED: HYDROMORPHONE HCL 2 MG/ML VIAL IV ONE (07:08)
[2019-03-18] MEDS ORDERED: RINGERS SOLUTION,LACTATED 1,000 ML IV ONE (11:41)
[2019-03-18] MEDS ORDERED: BUPIVACAINE 0.25% W/EPI MPF 30ML VIAL SQ ONE (12:12)
[2019-03-18] MEDS ORDERED: FENTANYL PF 100MCG/2ML VIAL IVP ONE ×3 (12:43)
[2019-03-18] MEDS ORDERED: KETOROLAC 30 MG/ML VIAL IVP ONE (13:23)
[2019-03-18] MEDS ORDERED: HYDROCODONE/APAP 5/325MG TABLET PO ONE (13:48)
--- NOTE | 2019-03-19 08:40 | Operative Note ---
DATE OF SURGERY: 03/18/2019 SURGEON: Adebayo Swann DO PREOPERATIVE DIAGNOSIS: Cholelithiasis with acute on chronic cholecystitis. POSTOPERATIVE DIAGNOSIS: Cholelithiasis with acute on chronic cholecystitis. OPERATION: Laparoscopic cholecystectomy. INDICATION: The patient is a 54-year-old female who presented to the hospital over the weekend with findings consistent with acute cholecystitis. She desired to go home on Monday and come back Monday for elective operation. Cholecystectomy was discussed in detail. Risks, benefits, and alternatives discussed. Risks include but are not limited to bleeding, infection, ductal injury, possible conversion to open, postoperative bile leak. She understood this fully. PROCEDURE: Thereafter, consent was signed and questions answered. She was taken to the operating room and placed in a supine position. General anesthesia was administered per the department of anesthesia. The patient's abdomen was prepped and draped in the usual sterile fashion. An adequate timeout was performed. She did receive preoperative antibiotics as well as DVT prophylaxis. At this time, the supraumbilical region was anesthetized with a total of 5 mL of 0.25% Sensorcaine with epinephrine. A 2 cm incision was made. This was carried down bluntly to the anterior rectus fascia. This was incised. Dar clamps were placed on the fascial edges and brought up into the wound. Stay sutures of 0 Vicryl were placed. Posterior rectus sheath was identified and incised. The peritoneal cavity was entered bluntly. At this time, a 10 mm blunt Cher port was placed. Adequate pneumoperitoneum was established. Under direct visualization, additional 5 mm epigastric and two 5 mm right subcostal ports were placed. The gallbladder was noted to be very tense and distended. As soon as this was grasped, this did rupture spilling nonpurulent bile. The gallbladder was then retracted in a cephalad and lateral direction opening up the angle of [place]. The hepatocystic triangle was thoroughly dissected out. There was no aberrant anatomy, no posterior ductal structures. The cystic duct and cystic artery were clearly identified. Each one was doubly clipped and cut in a standard fashion. Gallbladder essentially peeled off the liver bed with Gato harmonic. This was placed in an EndoCatch bag and brought out through the umbilical port. Right upper quadrant was rechecked and found to be hemostatic. No bleeding. No bile leak. No bowel injury noted. The patient was leveled out. The pneumoperitoneum was released. All ports were removed. The fascia was closed with 0 Vicryl in a [id number] fashion. The skin at all 4 ports was closed with 4-0 Vicryl. The patient was taken to the recovery room in satisfactory condition. FINDINGS AT THE TIME OF SURGERY: Acute cholecystitis. CC: Shlomo LUDWIG
== END 2019-03-18 14:25 | disposition home or self-care (01) ==
LOC: SUR 07:07
PROVIDERS: ATTEND Surgery
DX: K80.12 Calculus of gallbladder with acute and chronic cholecystitis without obstruction (principal); G47.33 Obstructive sleep apnea (adult) (pediatric); Z87.442 Personal history of urinary calculi
CPT/HCPCS: 93005; J1885; J2405; J3010; J1170; J3490; J7120

== ENCOUNTER 2019-06-30 20:05 | Emergency (ER) | payer BC ==
[2019-06-30 20:24] LABS: URINE BILIRUBIN NEGATIVE (NEGATIVE); URINE BLOOD LARGE (NEGATIVE); URINE COLOR YELLOW; URINE GLUCOSE (UA) NEGATIVE (NEGATIVE); URINE KETONE NEGATIVE (NEGATIVE); URINE LEUKOCYTE ESTERASE SMALL (NEGATIVE); URINE NITRITE NEGATIVE (NEGATIVE); URINE UROBILINOGEN 0.2 E.U./dL (0.20 - 1.00)
[2019-06-30 20:25] LABS: URINE APPEARANCE CLOUDY
[2019-06-30 20:30] LABS: URINE EPITHELIAL CELLS NONE SEEN (FEW); URINE RBC >50 (NONE SEEN)
[2019-06-30 20:31] LABS: URINE BACTERIA FEW
--- NOTE | 2019-06-30 20:41 | Emergency Department Record ---
History of Present Illness - General Chief complaint: Female Urogenital Problem Stated complaint: CANT URINATE,FULL BLADDER Time Seen by Provider: 06/30/19 20:27 Source: Patient Mode of Arrival: Ambulatory Limitations: No limitations - History of Present Illness Initial comments: pt feels like her bladder is not emptying since this afternoon. she states it is quite uncomfortable. she has no flank pain but does have a hx of kidney stones. MD Complaint: Other Onset/Timin -: Hour(s) Location: Suprapubic Radiation: Non-radiating Severity: Severe Severity scale (1-10): 8 Quality: Aching Consistency: Constant Improves with: Urination Worsens with: Movement Patient : No Associated Symptoms: Abdominal pain - Related Data Sexually active: Yes Previous Rx's Medication Instructions Recorded Amoxicillin/Potassium Clav 1 each PO BID #14 tablet 03/16/19 [Augmentin 875Mg/125Mg] Hydrocodone/Acetaminophen [[place] 1 each PO Q6HR #10 tablet 06/30/19 5-325 Tablet] Allergies Allergy/AdvReac Type Severity Reaction Status Date / Time tamsulosin [From Flomax] Allergy Intermediate HIVES Verified 03/18/19 08:52 sulfamethoxazole Allergy Mild HIVES Verified 10/27/17 18:23 [From Bactrim] trimethoprim [From Bactrim] Allergy Mild HIVES Verified 10/27/17 18:23 Travel Screening - Travel/Exposure Within Last 30 Days Have you traveled within the last 30 days?: No - Travel Symptoms Symptom Screening: None Review of Systems Reviewed: No additional complaints except as noted below Constitutional: Reports: As per HPI. Denies: Chills, Fever, Malaise, Night sweats, Weakness, Weight change Eyes: Reports: As per HPI. Denies: Eye discharge, Eye pain, Photophobia, Vision change ENT: Reports: As per HPI. Denies: Congestion, Dental pain, Ear pain, Epistaxis, Hearing loss, Throat pain Respiratory: Reports: As per HPI. Denies: Cough, Dyspnea, Hemoptysis, Stridor, Wheezes Cardiovascular: Reports: As per HPI. Denies: Arrhythmia, Chest pain, Dyspnea on exertion, Edema, Murmurs, Orthopnea, Palpitations, Paroxysmal nocturnal dyspnea, Rheumatic Fever, Syncope Endocrine: Reports: As per HPI. Denies: Fatigue, Heat or cold intolerance, Polydipsia, Polyuria Gastrointestinal: Reports: As per HPI, Abdominal pain. Denies: Constipation, Diarrhea, Hematemesis, Hematochezia, Melena, Nausea, Vomiting Genitourinary: Reports: As per HPI, Retention. Denies: Abnormal menses, Discharge, Dyspareunia, Dysuria, Frequency, Hematuria, Incontinence, Urgency Musculoskeletal: Reports: As per HPI. Denies: Arthralgia, Back pain, Gout, Joint swelling, Myalgia, Neck pain Skin: Reports: As per HPI. Denies: Bruising, Change in color, Change in hair/nails, Lesions, Pruritus, Rash Neurological: Reports: As per HPI. Denies: Abnormal gait, Confusion, Headache, Numbness, Paresthesias, Seizure, Tingling, Tremors, Vertigo, Weakness Psychiatric: Reports: As per HPI. Denies: Anxiety, Auditory hallucinations, Depression, Homicidal thoughts, Suicidal thoughts, Visual hallucinations Hematological/Lymphatic: Reports: As per HPI. Denies: Anemia, Blood Clots, Easy bleeding, Easy bruising, Swollen glands Past Medical History - SOCIAL HISTORY Smoking Status: Former smoker Alcohol Use: None, Occasional Drug Use: None - RESPIRATORY Hx Respiratory Disorders: Yes Hx Sleep Apnea: Yes Hx of CPAP: Yes - CARDIOVASCULAR Hx Cardio Disorders: No - NEURO Hx Neuro Disorders: No - GI Hx GI Disorders: Yes Hx Abdominal Pain: Yes Hx Reflux: Yes Hx Nausea/Vomiting: Yes (NO VOMITING) - Hx Genitourinary Disorders: Yes Hx Kidney Stones: Yes (MULTIPLE) Comment:: medullary sponge kidney - ENDOCRINE Hx Endocrine Disorders: Yes Hx Thyroid Disease: Yes (ON MEDS) - MUSCULOSKELETAL Hx Musculoskeletal Disorders: Yes Hx Arthritis: Yes - PSYCH Hx Psych Problems: Yes Hx Anxiety: Yes Hx Depression: Yes - HEMATOLOGY/ONCOLOGY Hx Hematology/Oncology Disorders: Yes Hx Cancer: Yes (SKIN) Hx Chemotherapy: No Hx Radiation Therapy: No Family Medical History Any Significant Family History?: Yes Hx Cancer: Father, Mother *Cancer Comment: pancreatic, appendix, leukemia Hx Heart Disease: Mother, Grandparents *Heart Comment: CHF Physical Exam - General General Appearance: Alert, Oriented x3, Cooperative, Mild distress - Head Head exam: Normal inspection - Eye Eye exam: Normal appearance, PERRL, EOMI Pupils: Normal accommodation - ENT ENT exam: Normal exam, Mucous membranes moist, Normal external ear exam, Normal orophraynx Ear exam: Normal external inspection. negative: External canal tenderness Nasal Exam: Normal inspection. negative: Discharge, Sinus tenderness Mouth exam: Normal external inspection, Tongue normal Teeth exam: Normal inspection. negative: Dental caries Throat exam: Normal inspection. negative: Tonsillar erythema, Tonsillar exudate - Neck Neck exam: Normal inspection, Full ROM. negative: Tenderness - Respiratory Respiratory exam: Normal lung sounds bilaterally. negative: Respiratory distress - Cardiovascular Cardiovascular Exam: Regular rate, Normal rhythm, Normal heart sounds - GI/Abdominal GI/Abdominal exam: Soft, Normal bowel sounds, Distended, Tenderness (suprapubic) - Rectal Rectal exam: Deferred - exam: Deferred - Extremities Extremities exam: Normal inspection, Full ROM, Normal capillary refill. negative: Tenderness - Back Back exam: Reports: Normal inspection, Full ROM. Denies: Muscle spasm, Rash noted, Tenderness - Neurological Neurological exam: Alert, CN II-XII intact, Normal gait, Oriented X3 - Psychiatric Psychiatric exam: Normal affect, Normal mood - Skin Skin exam: Dry, Intact, Normal color, Warm Course Vital Signs 06/30/19 20:14 Temperature 97.8 F Pulse Rate [ 98 H Left] Respiratory 16 Rate Blood Pressure 134/90 [Left Arm] Pulse Ox 98 - Reevaluation(s) Reevaluation #1: 06/30/19 23:00 pt feels much better Reevaluation #2: 06/30/19 23:00 ct shows 4mm stone at r uvj Medical Decision Making - Lab Data Result diagrams: 06/30/19 21:25 06/30/19 21:25 Lab Results 06/30/19 Range/Units 20:22 Urine Color Yellow Urine Appearance Cloudy Urine pH 6.0 (5.0-8.0) Ur Specific [place] 1.015 (1.002-1.030) Urine Protein 30 mg/dl H (NEGATIVE) Urine Glucose (UA) Negative (NEGATIVE) Urine Ketones Negative (NEGATIVE) Urine Blood Large H (NEGATIVE) Urine Nitrite Negative (NEGATIVE) Urine Bilirubin Negative (NEGATIVE) Urine Urobilinogen 0.2 (0.20 - 1.00) E.U./dL Ur Leukocyte Esterase Small H (NEGATIVE) Urine RBC >50 (NONE SEEN) Urine WBC 3 - 5 (0-2/hpf) Ur Epithelial Cells None seen (FEW) Urine Bacteria Few Disposition Disposition: Discharge Clinical Impression: Renal lithiasis Hydronephrosis Qualifiers: Hydronephrosis type: with ureteral calculous obstruction Qualified Code(s): N13.2 - Hydronephrosis with renal and ureteral calculous obstruction Disposition: Home, Self-Care Condition: (1) Good Instructions: Kidney Stones (ED), How to Strain Your Urine (ED) Additional Instructions: follow up with urology. return sooner if worse. push fluids. Prescriptions: Hydrocodone/Acetaminophen [[place] 5-325 Tablet] 1 each PO Q6HR #10 tablet Forms: Patient Portal Access Quality - Quality Measures Quality Measures: N/A - Blood Pressure Screening Does Patient Have Any of the Following: No Blood Pressure Classification: Pre-Hypertensive BP Reading Systolic Measurement: 138 Diastolic Measurement: 83 Screening for High Blood Pressure: < Pre-Hypertensive BP, F/U Documented > [G8950] Pre-Hypertensive Follow-up Interventions: Follow-up with rescreen every year.
[2019-06-30] MEDS: KETOROLAC 30 MG/ML VIAL IVP ONE (21:14)
[2019-06-30 21:54] LABS: ABSOLUTE NEUTROPHIL COUNT 5.97; BASO % 0.1 % (0-6); EOS % 3.8 % (0-6); HEMOGLOBIN 13.5 gm/dl (11.6-16.0); LYMPH % 22.4 % (16-45); MEAN CELL VOLUME 93.5 fl (81-97); MEAN CORPUSCULAR HEMOGLOBIN 30.1 pg (27-33); MEAN CORPUSCULAR HGB CONC 32.1 g/dl (32-36); MEAN PLATELET VOLUME 10.4 fl (7.4-10.4); MONO % 9.7 % (0-9); PLATELET COUNT 278 K/uL (130-400); RED BLOOD COUNT 4.49 M/uL (3.80-5.40); RED CELL DISTRIBUTION WIDTH 13.2 % (11.5-14.5); WHITE BLOOD COUNT W/O DIFF 9.3 K/uL (4.2-12.2)
[2019-06-30 22:08] LABS: CREATININE 1.1 mg/dL (0.5-0.9)
[2019-06-30] MEDS: HYDROMORPHONE HCL 2 MG/ML VIAL IVP ONE (22:22)
[2019-06-30] MEDS: ONDANSETRON HCL IV 4 MG/2 ML VIAL IVP ONE (22:22)
[2019-06-30] MEDS: 0.9 % SODIUM CHLORIDE 1,000 ML BAG IV ONE (22:23)
[2019-06-30] MEDS: HYDROCODONE/APAP 5/325MG TABLET PO ONE (23:08)
--- NOTE | 2019-07-01 14:32 | CT SCAN REPORT ---
EXAM: CT OF THE ABDOMEN AND PELVIS WITHOUT CONTRAST HISTORY: LOWER ABDOMINAL PAIN, HISTORY OF CHOLECYSTECTOMY. HISTORY OF KIDNEY STONES. PATIENT UNABLE TO EMPTY BLADDER WITH PELVIC PAIN BEGINNING TODAY. TECHNIQUE: Standard CT imaging of the abdomen and pelvis was obtained without intravenous contrast. Comparison: 03/16/19. FINDINGS: Minimal atelectasis at the lung bases. A few tiny incidental liver cysts are again seen. The gallbladder has been resected. The common bile duct is not overly dilated. No peripancreatic fat stranding. The spleen is normal in size. 1 cm right adrenal nodule with density favoring an adenoma. There is moderate right hydronephrosis with a 4 mm calculus in the distal right ureter at the ureteropelvic junction. Numerous small calculi throughout both kidneys. No left hydronephrosis. The bladder is completely decompressed with a Macias catheter in place. The stomach and small bowel are unremarkable. The colon is redundant. No pericolonic inflammation. The appendix is not visualized. No pelvic masses. No free fluid or adenopathy within the pelvis. No retroperitoneal adenopathy. No destructive osseous lesion is identified. The aorta is normal in caliber. IMPRESSION: A 4 MM CALCULUS AT THE RIGHT URETEROVESICAL JUNCTION CAUSES MODERATE HYDRONEPHROSIS. BILATERAL NEPHROLITHIASIS. JOB NUMBER: [id number] [facility]
== END 2019-06-30 23:27 | disposition home or self-care (01) ==
LOC: ER 20:05
DX: N13.2 Hydronephrosis with renal and ureteral calculous obstruction (principal); Z87.442 Personal history of urinary calculi
CPT/HCPCS: 74176; 80048; 81001; 85025; 96374; 96375; 99284; J1885; J2405; J7030